=== PATIENT | female | born 1995 | race African-American/Black ===

== ENCOUNTER 2018-11-10 15:04 | Emergency (ER) | payer BC ==
[~2018-11-10] VITALS: Ht 157.5 cm; Wt 61.2 kg
[2018-11-10] MEDS ORDERED: BIRTH CONTROL (15:14)
[2018-11-10] MEDS ORDERED: ALBUTEROL2.5 MG/31 INH (15:14)
[2018-11-10] MEDS ORDERED: VENTOLIN HFA 1818 GM INH ×2 (15:14→16:22)
[2018-11-10] MEDS ORDERED: FLOVENT HFA 4444 MCG INH (15:14)
[2018-11-10] MEDS ORDERED: PREDNISONE50 MG PO (16:22)
[2018-11-10 17:25] VITALS: BP 101/37
== END 2018-11-10 17:25 | disposition home or self-care (01) ==
LOC: M.ERS 15:04
DX: J45.901 Unspecified asthma with (acute) exacerbation (principal)